=== PATIENT | female | born 1975 | race Caucasian/White ===

== ENCOUNTER 2016-08-18 22:01 | Outpatient (CLI) | payer BC ==
[~2016-08-18] VITALS: Ht 165.1 cm; Wt 104.4 kg
[2016-08-18 22:22] VITALS: BP 154/95
[2016-08-18 22:39] VITALS: BP 140/84
[2016-08-18 22:57] VITALS: BP 156/94
[2016-08-18 23:07] LABS: BASOPHILS % (AUTO) 0 % (0-10); EOSINOPHILS # (AUTO) 0.1 10^3/uL (0.0-0.3); EOSINOPHILS % (AUTO) 1 % (0-10); LYMPHOCYTES # (AUTO) 2.5 X 10^3 (1.0-4.0); LYMPHOCYTES % (AUTO) 22 % (12-44); MEAN CORPUSCULAR HEMOGLOBIN 31 PG (25-34); MEAN CORPUSCULAR HGB CONC 34 G/DL (32-36); MEAN CORPUSCULAR VOLUME 90 FL (80-99); MEAN PLATELET VOLUME 9.6 FL (7.4-10.4); MONOCYTES # (AUTO) 0.8 X 10^3 (0.0-1.0); MONOCYTES % (AUTO) 7 % (0-12); NEUTROPHILS # (AUTO) 7.6 X 10^3 (1.8-7.8); NEUTROPHILS % (AUTO) 69 % (42-75); PLATELET COUNT 201 10^3/uL (130-400); RED BLOOD COUNT 4.07 10^6/uL (4.35-5.85); RED CELL DISTRIBUTION WIDTH 13.8 % (10.0-14.5)
[2016-08-18 23:23] VITALS: BP 149/80
[2016-08-18 23:27] LABS: ALANINE AMINOTRANSFERASE 13 U/L (0-55); ALBUMIN 3.5 GM/DL (3.2-4.5); ANION GAP 9 MMOL/L (5-14); ASPARTATE AMINO TRANSFERASE 16 U/L (5-34); BILIRUBIN,TOTAL 0.4 MG/DL (0.1-1.0); BLOOD UREA NITROGEN 10 MG/DL (7-18); BUN/CREATININE RATIO 16; CALCIUM 9.4 MG/DL (8.5-10.1); CARBON DIOXIDE 21 MMOL/L (21-32); CHLORIDE 107 MMOL/L (98-107); CREATININE SERUM 0.62 MG/DL (0.60-1.30); GFR ESTIMATED > 60; GLUCOSE 85 MG/DL (70-105); POTASSIUM 3.5 MMOL/L (3.6-5.0); SODIUM 137 MMOL/L (135-145); TOTAL PROTEIN 6.8 GM/DL (6.4-8.2)
[2016-08-18] MEDS ORDERED: PREN-142 PO (23:36)
[2016-08-18] MEDS ORDERED: METH500T2 PO (23:36)
[2016-08-18 23:37] VITALS: BP 141/78
--- NOTE | 2016-08-19 17:10 | Physician Query-Final Dx ---
BROCK CRESPO 08/19/16 1710: Clinic Account Progress/Dx Physician Query: Please give diagnosis Date of Service Aug 18, 2016 at 22:01 MAICO LONG MD 08/20/16 0757: Clinic Account Progress/Dx DIAGNOSIS: Diagnosis hypotension / syncope BROCK CRESPO Aug 19, 2016 17:10 MAICO LONG MD Aug 20, 2016 07:57
== END 2016-08-18 23:45 | disposition home or self-care (01) ==
LOC: WSo 22:01 → LDRP 22:01 → WSo 23:45
PROVIDERS: ATTEND Obstetrics & Gynecology
DX: O99.413 Diseases of the circulatory system complicating pregnancy, third trimester (principal); I95.9 Hypotension, unspecified; R55 Syncope and collapse; O09.523 Supervision of elderly multigravida, third trimester; Z3A.30 30 weeks gestation of pregnancy
CPT/HCPCS: 36415; 80053; 82570; 84156; 85025; 99213

== ENCOUNTER → 2016-09-17 | Outpatient (CLI) | payer BC ==
[~2016-09-17] MED LIST: METH500T2 PO; PREN-142 PO
[2016-09-17 10:28] LABS: PROTEIN/CREATININE RATIO 0.12
== END ==
LOC: LABNPT 10:01
PROVIDERS: ATTEND Obstetrics & Gynecology
DX: O14.13 Severe pre-eclampsia, third trimester (principal); Z3A.00 Weeks of gestation of pregnancy not specified
CPT/HCPCS: 82570; 84156

== ENCOUNTER 2016-10-01 09:41 | Outpatient (CLI) | payer BC ==
[~2016-10-01] VITALS: Ht 162.6 cm; Wt 106.1 kg
[~2016-10-01 09:41] MED LIST changes: -NIFE30TA2 PO
[2016-10-01 09:57] VITALS: BP_SYST 153; BP_SYST 171; BP_DIAS 114
[2016-10-01] MEDS ORDERED: NIFE30TA2 PO ×2 (18:35)
== END 2016-10-01 10:10 | disposition home or self-care (01) ==
LOC: PREOP 09:41
PROVIDERS: ATTEND Obstetrics & Gynecology
DX: Z01.818 Encounter for other preprocedural examination (principal); O34.211 Maternal care for low transverse scar from previous cesarean delivery; O99.013 Anemia complicating pregnancy, third trimester; D64.9 Anemia, unspecified
CPT/HCPCS: 87081

== ENCOUNTER 2016-10-01 16:35 | Outpatient (CLI) | payer BC ==
[~2016-10-01] VITALS: Ht 162.6 cm; Wt 105.7 kg
[2016-10-01 16:55] VITALS: BP 155/98
[2016-10-01] MEDS ORDERED: NIFEdipine 10 MG CAPS (WOMEN'S SERVICES ONLY!!!) PO ONE (17:15)
[2016-10-01 17:30] VITALS: BP 145/88
[2016-10-01] MEDS ORDERED: NIFE30TA2 PO (18:35)
--- NOTE | 2016-10-02 13:43 | Physician Query-Final Dx ---
JANINE MENDES 10/02/16 1343: Clinic Account Progress/Dx Physician Query: Please give diagnosis Date of Service Oct 01, 2016 at 16:35 MAICO LONG MD 10/05/16 0748: Clinic Account Progress/Dx DIAGNOSIS: Diagnosis APURVA JANINE MENDES Oct 02, 2016 13:43 MAICO LONG MD Oct 05, 2016 07:48
== END 2016-10-01 19:08 | disposition home or self-care (01) ==
LOC: WSo 16:35 → LDRP 16:35 → WSo 19:08
PROVIDERS: ATTEND Obstetrics & Gynecology
DX: O13.3 Gestational [pregnancy-induced] hypertension without significant proteinuria, third trimester (principal); Z3A.36 36 weeks gestation of pregnancy
CPT/HCPCS: 99213

== ENCOUNTER → 2016-10-01 | Outpatient (CLI) | payer BC ==
[~2016-10-01] MED LIST changes: +NIFE30TA2 PO
== END ==
LOC: LABNPT 09:50
PROVIDERS: ATTEND Obstetrics & Gynecology
DX: O28.9 Unspecified abnormal findings on antenatal screening of mother (principal); Z3A.00 Weeks of gestation of pregnancy not specified
CPT/HCPCS: 82570; 84156

== ENCOUNTER 2016-10-05 11:15 | Inpatient (IN) | payer BC ==
[2016-10-05] VITALS (8 sets, daily range): BP systolic 152–190; BP diastolic 79–111
[~2016-10-05] VITALS: Ht 165.1 cm; Wt 104.8 kg
[~2016-10-05 11:15] MED LIST changes: +NIFE30TA2 PO
[2016-10-05] MEDS ORDERED: LACTATED RINGERS 1,000 ML IV PRN ×2 (12:18)
[2016-10-05 12:25] LABS: BASOPHILS % (AUTO) 0 % (0-10); EOSINOPHILS # (AUTO) 0.1 10^3/uL (0.0-0.3); EOSINOPHILS % (AUTO) 1 % (0-10); LYMPHOCYTES # (AUTO) 2.3 X 10^3 (1.0-4.0); LYMPHOCYTES % (AUTO) 22 % (12-44); MEAN CORPUSCULAR HEMOGLOBIN 31 PG (25-34); MEAN CORPUSCULAR HGB CONC 34 G/DL (32-36); MEAN CORPUSCULAR VOLUME 90 FL (80-99); MEAN PLATELET VOLUME 10.3 FL (7.4-10.4); MONOCYTES # (AUTO) 0.7 X 10^3 (0.0-1.0); MONOCYTES % (AUTO) 7 % (0-12); NEUTROPHILS # (AUTO) 7.3 X 10^3 (1.8-7.8); NEUTROPHILS % (AUTO) 70 % (42-75); PLATELET COUNT 238 10^3/uL (130-400); RED BLOOD COUNT 4.56 10^6/uL (4.35-5.85); RED CELL DISTRIBUTION WIDTH 13.9 % (10.0-14.5); WHITE BLOOD COUNT 10.5 10^3/uL (4.3-11.0)
[2016-10-05] MEDS ORDERED: FAMOTIDINE 20MG/2ML IV (PEPCID) IV ONE (12:30)
[2016-10-05] MEDS ORDERED: CATHETER FLUSH 10 ML SYR IV PRN (12:30)
[2016-10-05] MEDS ORDERED: CITRIC ACID/SOB CIT (BICITRA) 30 ML UDC PO ONE (12:30)
[2016-10-05] MEDS ORDERED: METOCLOPRAMIDE INJ 10 MG/2 ML (REGLAN) IV ONE (12:30)
[2016-10-05] MEDS ORDERED: ceFAZolin INJECTION 2,000 MG in NS (IVPB) 50 ML IV ONE (13:00)
[2016-10-05] MEDS ORDERED: metroNIDAZOLE 500MG/100ML IVPB 100 ML IV ONE (13:00)
[2016-10-05] MEDS ORDERED: D5 LR IV SOLUTION 1,000 ML IV SCH (13:00)
[2016-10-05] MEDS ORDERED: OXYTOCIN/NORMAL SALINE 500 ML IV SCH (13:01)
[2016-10-05] MEDS ORDERED: D5 LR IV SOLUTION 1,000 ML IV ONE (13:09)
--- NOTE | 2016-10-05 13:09 | History & Physical ---
History and Physical Date Seen by Provider: Oct 05, 2016 Time Seen by Provider: 13:05 this patient is a 40-year-old 3 white female with an EDC of October 24, 2016. She was seen in clinic on this date with blood pressure 75/ 118. Blood pressures have been elevated throughout her responding intermittently and somewhat reported [place]. Last Wednesday she was changed to Procardia and had a nice reduction her blood pressure however her blood pressure has rebounded now it is even higher. She complains of headache. She is admitted now for severe preeclampsia for blood pressure control and to expedite delivery. GBS culture was positive at 35 weeks gestation she denies rupture membranes or bleeding Allergies are none medications are vitamins and Procardia 30 mg XL daily Medical history past surgical history obstetric history family history and social histories are per the antepartum record HEENT exam is normal. Patient does appear very uncomfortable. Neck is supple no lymphadenopathy no thyromegaly Abdomen is gravid soft nontender nondistended Extreme show clubbing cyanosis. There is fairly significant pretibial pitting edema. There is no Homans sign. DTRs are 3+ over 4 locally Pelvic exam is deferred Pressure since arrival at labor and delivery has been as high as 190 over 118, but pressures have gradually come down with decreased ambulation at bed rest currently in the 150s over 106 Lab work is pending Assessment and plan 37-2/7 weeks' gestation with previous C-sections 3 and was severe uncontrolled PIH/hypertension plan is for blood pressure control and repeat the today severe PIH at 37 weeks gestation Allergies and Home Medications Allergies Coded Allergies: adhesive tape (Verified Allergy, Unknown, HIVES, 10/01/16) Home Medications Nifedipine 30 Mg Tab.er.24, 10 MG PO DAILY for 7 Days, #7 Prescribed by: GAYATHRI BAUTISTA on 10/01/16 7365 Vit No.124/Iron/FA 1 Each Tablet, 1 EACH PO DAILY, (Reported) MAICO LONG MD Oct 05, 2016 1:09 pm
[2016-10-05] MEDS ORDERED: MEPERIDINE (DEMEROL) INJ 100 MG/ML IM PRN (13:15)
[2016-10-05] MEDS ORDERED: PROMETHAZINE INJ 25 MG/ML (PHENERGAN) AMP IM PRN (13:15)
[2016-10-05] MEDS ORDERED: oxyCODONE/APAP 10/325MG (PERCOCET 10) TABLET PO PRN (13:15)
[2016-10-05] MEDS ORDERED: TETANUS,DIPTH,PERTUSS P/F (BOOSTRIX) 0.5 ML VIAL IM ONE (13:15)
[2016-10-05] MEDS ORDERED: MEASLES,MUMPS,RUBELLA 1 EA INJ SC ONE (13:15)
[2016-10-05 14:11] LABS: ALANINE AMINOTRANSFERASE 13 U/L (0-55); ALBUMIN 3.5 GM/DL (3.2-4.5); ANION GAP 10 MMOL/L (5-14); ASPARTATE AMINO TRANSFERASE 18 U/L (5-34); BILIRUBIN,TOTAL 0.5 MG/DL (0.1-1.0); BLOOD UREA NITROGEN 7 MG/DL (7-18); BUN/CREATININE RATIO 11; CALCIUM 9.6 MG/DL (8.5-10.1); CARBON DIOXIDE 20 MMOL/L (21-32); CHLORIDE 108 MMOL/L (98-107); CREATININE SERUM 0.62 MG/DL (0.60-1.30); GFR ESTIMATED > 60; GLUCOSE 82 MG/DL (70-105); LACTATE DEHYDROGENASE 181 U/L (125-220); POTASSIUM 3.7 MMOL/L (3.6-5.0); SODIUM 138 MMOL/L (135-145); TOTAL PROTEIN 6.7 GM/DL (6.4-8.2)
[2016-10-05] MEDS ORDERED: ceFAZolin 2 GM/50 ML NS 50 ML ONE (14:37)
[2016-10-05] MEDS ORDERED: LACTATED RINGERS 1,000 ML IV ONE (14:46)
[2016-10-05] MEDS ORDERED: OXYTOCIN/NORMAL SALINE 1,000 ML IV ONE (14:46)
[2016-10-05] MEDS ORDERED: morphine PF (DURAMORPH) 10 MG/10 ML AMP ONE (14:47)
[2016-10-05] MEDS ORDERED: fentaNYL INJECTION 100 MCG/2 ML AMP ONE (14:47)
[2016-10-05] MEDS ORDERED: morphine PF (DURAMORPH) 10 MG/10 ML AMP INJ ONE (16:15)
[2016-10-05] MEDS ORDERED: fentaNYL INJECTION 100 MCG/2 ML AMP INJ ONE (16:15)
[2016-10-05] MEDS ORDERED: ONDANSETRON 4 MG/2 ML (SDV) Z0FRAN IV PRN (16:15)
[2016-10-05] MEDS ORDERED: NALOXONE 0.4 MG/ML 1 ML (NARCAN) VIAL IV PRN (16:15)
[2016-10-05] MEDS ORDERED: DOCUSATE SODIUM 100 MG (COLACE) CAP PO SCH (21:00)
[2016-10-05] MEDS: KETOROLAC 30 MG/ML VIAL IVP SCH (21:21)
--- NOTE | 2016-10-05 23:43 | OPERATIVE REPORT ---
DATE OF SERVICE: 10/05/2016 PREOPERATIVE DIAGNOSIS: Term at 37 weeks and 2 days with severe induced hypertension. POSTOPERATIVE DIAGNOSIS: Term at 37 weeks and 2 days with severe induced hypertension. OPERATIVE PROCEDURE: Repeat low transverse delivery of a viable male with Apgars of 9 and 8 at 1 and 5 minutes, respectively. Weight of 6 pounds 7 ounces. Cord blood pH is 7.28 and a time of 1534. OPERATIVE DESCRIPTION: With the patient in the supine position under satisfactory spinal anesthesia, she was prepped and draped in the usual fashion for abdominal surgery. Frye catheter was placed in the urinary bladder. A repeat Pfannenstiel incision was made through the skin with a scalpel and the patient's abdomen entered in the usual manner. Bladder retractor placed into position. Clean scalpel used to make a 4 cm hysterotomy incision transversely across the lower uterine segment. The amniotic fluid was released on hysterotomy, was copious and clear. Boone forceps were applied to facilitate delivery of a vigorous viable male with Apgars of 9 and 8 at 1 and 5 minutes, respectively, weight of 6 pounds 7 ounces, time of 1534 and a cord arterial pH of 7.28. The had a nuchal cord that was easily released. The infant was bulb suctioned on delivery of the head and again on completion of delivery the cord was doubly clamped and cut and the infant passed to Karon Albert, the pediatric nurse in attendance for delivery. Cord bloods were obtained. The placenta delivered spontaneously Schule. It was normal with a 3-vessel cord. The uterus was exteriorized until wiped clean with a wet laparotomy sponge. Uterine incision closed with a running locked suture of 2-0 Vicryl. Hemostasis was complete. The uterus was quite large and bulky. There was a large posterior lower uterine segment fibroid. There was a large fibroid occupying the left side of the uterus. The uterus was returned to the abdominal cavity. All blood clot and debris removed from the abdominal cavity. Sponge and needle counts correct and hemostasis assured, the anterior parietal peritoneum was closed with running suture of 2-0 Vicryl. Rectus muscles were closed with that suture as well. The rectus fascia was closed with 2-0 Vicryl, subcutaneous tissues were closed with 2-0 Vicryl and the skin with pascual. Sponge and needle counts were correct on completion of the procedure. Estimated blood loss was around 500 mL. The patient tolerated the procedure well, was transferred to the recovery room in stable condition. Blood pressures had dropped nicely after placement of the spinal. The patient will be watched closely for blood pressures. Job ID: [id number] DocumentID: [id number] Dictated Date: 10/05/2016 16:00:10 Seam Presser Date: 10/05/2016 23:43:22 Dictated By: MAICO LONG MD
[2016-10-06] VITALS: BP 159/100
[2016-10-06] MEDS: KETOROLAC 30 MG/ML VIAL IVP SCH (03:59)
[2016-10-06 04:30] VITALS: BP 154/101
--- NOTE | 2016-10-06 07:37 | Progress Note-Standard ---
Standard Progress Note Progress Notes/Assess & Plan Date Seen by Provider: Oct 06, 2016 Time Seen by Provider: 07:35 Progress/Assessment & Plan this patient is without complaint. Her baby was shipped to [facility] secondary to increased oxygen requirement. Requesting discharge. She is ambulating, voiding, tolerating by mouth well, has good pain control. Her blood pressures remained elevated and somewhat labile. Eyes chest pain, denies shortness of breath, denies nausea vomiting, and denies headache. Vital Signs Date Time Temp Pulse Resp B/P (MAP) Pulse Ox O2 Delivery O2 Flow Rate FiO2 10/06/16 04:30 154/101 10/06/16 04:00 98.6 88 16 100 Room Air 10/06/16 00:00 98.5 90 16 159/100 97 Room Air 10/05/16 22:18 159/109 10/05/16 20:00 98.4 105 19 188/111 99 Room Air 10/05/16 17:25 98.3 82 18 158/100 99 Room Air 10/05/16 14:35 89 18 155/91 10/05/16 13:30 88 18 159/95 10/05/16 12:20 88 152/79 10/05/16 11:40 88 18 168/104 Room Air 10/05/16 11:35 98.7 83 18 190/108 Room Air I & O 10/06/16 07:00 Intake Total 1650 ml Output Total 1850 ml Balance -200 ml Blood pressures are generally in 160 and is afebrile Abdomen is benign. The incision is clean dry and intact. Extremities show clubbing cyanosis. There is no Homans sign. There is some fairly notable pretibial pitting edema that is not new for this patient Assessment and plan postoperative day number 1 status post repeat secondary to severe PIH. Patient will be discharged home with follow-up in clinic. We'll continue her procardia in the short-term for her blood pressure. Final Diagnosis severe PIH/repeat at 37-2/7 weeks' gestation MAICO LONG MD Oct 06, 2016 7:37 am
[2016-10-06] MEDS ORDERED: IBUP-1780 PO (07:39)
[2016-10-06] MEDS ORDERED: DOCU100C37 PO (07:39)
[2016-10-06] MEDS ORDERED: OXYC-465 PO (07:39)
[2016-10-06] MEDS ORDERED: NIFE30TA2 PO (07:39)
--- NOTE | 2016-10-06 07:41 | Discharge Instructions ---
Discharge Instructions Discharge Medications New, Converted or Re-Newed RX: RX on Chart Patient Instructions Patient Instructions: as directed Return to The Hospital For: as directed Activity & Diet Discharge Diet: No Restrictions Activity as Tolerated: No Orders-Post D/C & Referrals Follow Up Appt: RTC tomorrow or the next day at 930 a.m. for incision check and staple removal. Call to make follow up appt. for patient in 4 weeks. Activity Per routine post instructions. Please call in RX to patient pharmacy. Diet as tolerated Patient may shower or tub bathe as desired. Continue home meds MAICO LONG MD Oct 06, 2016 7:41 am
[2016-10-06 08:00] VITALS: BP 153/98
[2016-10-06] MEDS ORDERED: TETANUS,DIPTH,PERTUSS P/F (BOOSTRIX) 0.5 ML VIAL IM ONE (08:09)
[2016-10-06] MEDS ORDERED: IBUPROFEN 800 MG (MOTRIN) TAB PO SCH (13:15)
== END 2016-10-06 09:05 | disposition home or self-care (01) | DRG 766 ==
LOC: LDRP 11:15
PROVIDERS: ADMIT Obstetrics & Gynecology; ATTEND Obstetrics & Gynecology
PROC: 10D00Z1 Extraction of Products of Conception, Low, Open Approach (ICD-10-PCS; principal; 2016-10-05 15:07)
DX: O14.14 Severe pre-eclampsia complicating childbirth (principal); O34.211 Maternal care for low transverse scar from previous cesarean delivery; O99.824 Streptococcus B carrier state complicating childbirth; O34.13 Maternal care for benign tumor of corpus uteri, third trimester; O69.81X0 Labor and delivery complicated by cord around neck, without compression, not applicable or unspecified; Z37.0 Single live birth; Z3A.37 37 weeks gestation of pregnancy
CPT/HCPCS: 36415; 80053; 82570; 83615; 84156; 85025; 86850; 86900; 86901; 94664

== ENCOUNTER → 2020-05-15 | Outpatient (CLI) | payer BC ==
[~2020-05-15] MED LIST changes: +DOCU100C37 PO; +IBUP-1780 PO; -METH500T2 PO; +METH500T23 PO; +OXYC-556 PO
== END ==
LOC: LABNPT 09:45
PROVIDERS: ATTEND Obstetrics & Gynecology
DX: O14.93 Unspecified pre-eclampsia, third trimester (principal); Z3A.00 Weeks of gestation of pregnancy not specified
CPT/HCPCS: 82570; 84156

== ENCOUNTER 2020-05-20 13:53 | Outpatient (CLI) | payer BC ==
[~2020-05-20] VITALS: Ht 167.7 cm; Wt 108.0 kg
[2020-05-20] VITALS (7 sets, daily range): BP systolic 160–189; BP diastolic 91–112
[2020-05-20] MEDS ORDERED: D5 LR IV SOLUTION 1,000 ML IV SCH (14:45)
[2020-05-20 15:05] LABS: BASOPHILS % (AUTO) 0 % (0-10); EOSINOPHILS # (AUTO) 0.1 10^3/uL (0.0-0.3); EOSINOPHILS % (AUTO) 1 % (0-10); HEMATOCRIT 42 % (35-52); HEMOGLOBIN 14.1 g/dL (11.5-16.0); LYMPHOCYTES # (AUTO) 2.3 X 10^3 (1.0-4.0); LYMPHOCYTES % (AUTO) 20 % (12-44); MEAN CORPUSCULAR HEMOGLOBIN 30 pg (25-34); MEAN CORPUSCULAR HGB CONC 34 g/dL (32-36); MEAN CORPUSCULAR VOLUME 89 fL (80-99); MEAN PLATELET VOLUME 9.5 fL (9.0-12.2); MONOCYTES # (AUTO) 0.7 X 10^3 (0.0-1.0); MONOCYTES % (AUTO) 6 % (0-12); NEUTROPHILS # (AUTO) 8.4 X 10^3 (1.8-7.8); NEUTROPHILS % (AUTO) 72 % (42-75); PLATELET COUNT 275 10^3/uL (130-400); WHITE BLOOD COUNT 11.7 10^3/uL (4.3-11.0)
[2020-05-20 15:08] LABS: BILIRUBIN,URINE NEGATIVE (NEGATIVE); CLARITY,URINE CLEAR; COLOR,URINE YELLOW; GLUCOSE, URINE (UA) NEGATIVE (NEGATIVE); KETONES,URINE NEGATIVE (NEGATIVE); LEUKOCYTE ESTERASE ,URINE NEGATIVE (NEGATIVE); NITRITE,URINE NEGATIVE (NEGATIVE); PH,URINE 5.5 (5-9); PROTEIN,URINE TRACE (NEGATIVE)
[2020-05-20] MEDS ORDERED: NIFE30TA2 PO (15:13)
[2020-05-20 15:15] LABS: BACTERIA,URINE FEW /HPF; WBC,URINE 0-2 /HPF
[2020-05-20 15:16] LABS: ALANINE AMINOTRANSFERASE 13 U/L (0-55); ALBUMIN 3.6 GM/DL (3.2-4.5); ALKALINE PHOSPHATASE 97 U/L (40-136); BILIRUBIN,TOTAL 0.3 MG/DL (0.1-1.0); BUN/CREATININE RATIO 12; CALCIUM 9.2 MG/DL (8.5-10.1); CARBON DIOXIDE 20 MMOL/L (21-32); CHLORIDE 106 MMOL/L (98-107); CREATININE SERUM 0.58 MG/DL (0.60-1.30); GFR ESTIMATED > 60; GLUCOSE 78 MG/DL (70-105); POTASSIUM 3.8 MMOL/L (3.6-5.0); SODIUM 137 MMOL/L (135-145); TOTAL PROTEIN 7.3 GM/DL (6.4-8.2); URIC ACID 4.5 MG/DL (2.6-7.2)
[2020-05-20] MEDS ORDERED: LABETALOL 200 MG (NORMODYNE) TAB PO NR (16:00)
--- NOTE | 2020-05-21 08:07 | Physician Query-Final Dx ---
Clinic Account Progress/Dx Physician Query: Please give diagnosis Please include # weeks gestation Date of Service May 20, 2020 at 13:53 KATHY LUNDBERG May 21, 2020 08:06
== END 2020-05-20 16:08 | disposition home or self-care (01) ==
LOC: LDRP 13:53 → WSo 13:53
PROVIDERS: ATTEND Obstetrics & Gynecology
DX: O13.3 Gestational [pregnancy-induced] hypertension without significant proteinuria, third trimester (principal); Z3A.34 34 weeks gestation of pregnancy
CPT/HCPCS: 36415; 80053; 81000; 82570; 83615; 84156; 84550; 85025; 87088; 99213

== ENCOUNTER → 2020-05-21 | Outpatient (CLI) | payer BC | LOC: LABNPT 10:58 | PROVIDERS: ATTEND Obstetrics & Gynecology | DX: O14.93 Unspecified pre-eclampsia, third trimester (principal); Z3A.00 Weeks of gestation of pregnancy not specified | CPT/HCPCS: 82570; 84156 ==

== ENCOUNTER → 2020-05-27 | Outpatient (CLI) | payer BC | LOC: LABNPT 09:12 | PROVIDERS: ATTEND Obstetrics & Gynecology | DX: O14.93 Unspecified pre-eclampsia, third trimester (principal); Z3A.00 Weeks of gestation of pregnancy not specified | CPT/HCPCS: 82570; 84156 ==

== ENCOUNTER → 2020-06-04 | Outpatient (CLI) | payer BC ==
[~2020-06-04] MED LIST changes: +DOCU-143 PO; +LABE200T7 PO; +OXYC1TAB12 PO
== END ==
LOC: LABNPT 10:16
PROVIDERS: ATTEND Obstetrics & Gynecology
DX: O14.93 Unspecified pre-eclampsia, third trimester (principal); Z3A.00 Weeks of gestation of pregnancy not specified
CPT/HCPCS: 82570; 84156

== ENCOUNTER 2020-06-06 05:38 | Outpatient (CLI) | payer BC ==
[~2020-06-06] VITALS: Ht 172.7 cm; Wt 113.6 kg
[~2020-06-06 05:38] MED LIST changes: -DOCU-143 PO; -LABE200T7 PO; -OXYC1TAB12 PO
[2020-06-06] MEDS ORDERED: LABE200T7 PO ×2 (12:41)
[2020-06-07] MEDS ORDERED: IBUP-1780 PO ×2 (13:44)
[2020-06-07] MEDS ORDERED: DOCU-143 PO ×2 (13:44)
[2020-06-07] MEDS ORDERED: OXYC1TAB12 PO ×2 (13:44)
== END 2020-06-06 12:48 | disposition home or self-care (01) ==
LOC: PREOP 05:38 → EDSTATUS 12:00 → PREOP 12:48
PROVIDERS: ATTEND Obstetrics & Gynecology
DX: Z01.818 Encounter for other preprocedural examination (principal)

== ENCOUNTER 2020-06-07 12:28 | Inpatient (IN) | payer BC ==
[2020-06-07] VITALS (15 sets, daily range): BP systolic 147–230; BP diastolic 74–140
[~2020-06-07] VITALS: Ht 170 cm; Wt 113.0 kg
[~2020-06-07 12:28] MED LIST changes: +LABE200T7 PO
[2020-06-07] MEDS ORDERED: D5 LR IV SOLUTION 1,000 ML IV ONE (12:41)
[2020-06-07] MEDS ORDERED: D5 LR IV SOLUTION 1,000 ML IV SCH ×2 (13:00→13:45)
[2020-06-07] MEDS ORDERED: ceFAZolin INJECTION 2,000 MG in WATER (STERILE) FOR INJECTION 10 ML IV ONE (13:00)
[2020-06-07] MEDS ORDERED: metroNIDAZOLE 500MG/100ML IVPB 100 ML IV ONE (13:00)
[2020-06-07] MEDS ORDERED: METOCLOPRAMIDE INJ 10 MG/2 ML (REGLAN) ONE (13:11)
[2020-06-07] MEDS ORDERED: hydrALAZINE (APESOLINE) 20 MG/ML VIAL ONE (13:11)
[2020-06-07] MEDS ORDERED: CITRIC ACID/SOB CIT (BICITRA) 30 ML UDC ONE (13:12)
[2020-06-07] MEDS ORDERED: FAMOTIDINE 20MG/2ML IV (PEPCID) ONE (13:12)
[2020-06-07] MEDS ORDERED: hydrALAZINE (APESOLINE) 20 MG/ML VIAL IV ONE ×2 (13:15→19:00)
[2020-06-07] MEDS ORDERED: ceFAZolin 2 GM IV Premixed 50 ML ONE (13:16)
[2020-06-07 13:21] LABS: BASOPHILS % (AUTO) 0 % (0-10); EOSINOPHILS # (AUTO) 0.1 10^3/uL (0.0-0.3); EOSINOPHILS % (AUTO) 1 % (0-10); HEMATOCRIT 39 % (35-52); HEMOGLOBIN 13.1 g/dL (11.5-16.0); LYMPHOCYTES # (AUTO) 2.1 10^3/uL (1.0-4.0); LYMPHOCYTES % (AUTO) 20 % (12-44); MEAN CORPUSCULAR HEMOGLOBIN 31 pg (25-34); MEAN CORPUSCULAR HGB CONC 34 g/dL (32-36); MEAN CORPUSCULAR VOLUME 92 fL (80-99); MEAN PLATELET VOLUME 9.9 fL (9.0-12.2); MONOCYTES # (AUTO) 0.6 10^3/uL (0.0-1.0); MONOCYTES % (AUTO) 6 % (0-12); NEUTROPHILS # (AUTO) 7.5 10^3/uL (1.8-7.8); NEUTROPHILS % (AUTO) 71 % (42-75); PLATELET COUNT 232 10^3/uL (130-400); WHITE BLOOD COUNT 10.6 10^3/uL (4.3-11.0)
[2020-06-07] MEDS ORDERED: fentaNYL INJ 100 MCG/2 ML AMP ONE (13:29)
[2020-06-07] MEDS ORDERED: OXYTOCIN PRE-MIX DRIP 1,000 ML IV ONE (13:31)
[2020-06-07 13:39] LABS: ALANINE AMINOTRANSFERASE 27 U/L (0-55); ALBUMIN 3.5 GM/DL (3.2-4.5); ALKALINE PHOSPHATASE 96 U/L (40-136); BILIRUBIN,TOTAL 0.3 MG/DL (0.1-1.0); BUN/CREATININE RATIO 18; CARBON DIOXIDE 18 MMOL/L (21-32); CHLORIDE 107 MMOL/L (98-107); CREATININE SERUM 0.62 MG/DL (0.60-1.30); GFR ESTIMATED > 60; GLUCOSE 89 MG/DL (70-105); SODIUM 137 MMOL/L (135-145); TOTAL PROTEIN 6.6 GM/DL (6.4-8.2); URIC ACID 6.1 MG/DL (2.6-7.2)
--- NOTE | 2020-06-07 13:40 | History & Physical ---
History and Physical Date Seen by Provider: Jun 07, 2020 Time Seen by Provider: 13:35 This patient is a 44-year-old 5 para 4 4 white female with a long history of pre-existing hypertension. Her blood pressure has been adequately controlled initially on nifedipine but eventually that became no longer effective and she was changed to labetalol with initially reasonable effect but of late her blood pressures have been continuing to elevate in spite of increasing doses of labetalol. She presents now with blood pressures over 220/100 and teens. She has had lab work performed number of times that have ruled out preeclampsia being superimposed on her hypertension. But at this point she has uncontrolled pre-existing hypertension and has been admitted with plan to proceed with repeat . She is currently 36-4/7 weeks gestation. Patient denies rupture membranes or bleeding. She does complain of a severe right-sided headache. She has had a GBS culture that was negative. Patient is also diabetic type A1 with adequate blood sugar control with her diet Allergies are to adhesive tape Medications are vitamins and labetalol recently elevated to 400 mg twice a day Medical social and surgical history is all per the antepartum record HEENT exam is normal Neck is supple no lymphadenopathy no thyromegaly Abdomen is gravid soft nontender nondistended Extremities show no clubbing or cyanosis. There is no Homans' sign. Pelvic exam is deferred Lab work is as follows Laboratory Tests Test 06/07/20 12:45 06/07/20 13:16 06/07/20 13:17 Range/Units White Blood Count 10.6 4.3-11.0 10^3/uL Red Blood Count 4.25 3.80-5.11 10^6/uL Hemoglobin 13.1 11.5-16.0 g/dL Hematocrit 39 35-52 % Mean Corpuscular Volume 92 80-99 fL Mean Corpuscular Hemoglobin 31 25-34 pg Mean Corpuscular Hemoglobin Concent 34 32-36 g/dL Red Cell Distribution Width 14.3 10.0-14.5 % Platelet Count 232 130-400 10^3/uL Mean Platelet Volume 9.9 9.0-12.2 fL Immature Granulocyte % (Auto) 2 % Neutrophils (%) (Auto) 71 42-75 % Lymphocytes (%) (Auto) 20 12-44 % Monocytes (%) (Auto) 6 0-12 % Eosinophils (%) (Auto) 1 0-10 % Basophils (%) (Auto) 0 0-10 % Neutrophils # (Auto) 7.5 1.8-7.8 10^3/uL Lymphocytes # (Auto) 2.1 1.0-4.0 10^3/uL Monocytes # (Auto) 0.6 0.0-1.0 10^3/uL Eosinophils # (Auto) 0.1 0.0-0.3 10^3/uL Basophils # (Auto) 0.0 0.0-0.1 10^3/uL Immature Granulocyte # (Auto) 0.2 H 0.0-0.1 10^3/uL Assessment and plan 36-4/7 weeks gestation with severe uncontrolled pre- existing hypertension. It does not appear that the patient is overtly preeclam ptic but lab work is pending. Patient has had 4 previous C-sections and we are planning now to proceed with . She has been given a dose of Apresoline and effort to decrease her blood pressure some in preparation for the . Anesthesia has been consulted as is the surgery crew. is pending Severe pre-existing hypertension at this point uncontrolled now at 36-4/7 weeks gestation with 4 previous and with gestational diabetes Allergies and Home Medications Allergies Coded Allergies: adhesive tape (Verified Allergy, Unknown, HIVES, 10/01/16) Home Medications Labetalol HCl 200 Mg Tablet, 400 MG PO BID, (Reported) Vit No.124/Iron/FA 1 Each Tablet, 1 EACH PO DAILY, (Reported) Patient Home Medication List Home Medication List Reviewed: Yes MAICO LONG MD Jun 07, 2020 13:40
[2020-06-07] MEDS ORDERED: OXYC1TAB12 PO ×2 (13:44)
[2020-06-07] MEDS ORDERED: IBUP-1780 PO ×2 (13:44)
[2020-06-07] MEDS ORDERED: DOCU-143 PO ×2 (13:44)
--- NOTE | 2020-06-07 13:44 | Discharge Inst-Surgical ---
Discharge Inst-Surgical Depart Medication/Instructions New, Converted or Re-Newed RX: RX on Chart Consults/Follow Up Patient Instructions: As directed Orders & Referrals Follow Up Appt: RTC 1 week for incision check. Call to make follow up appt. for patient in 4 weeks. Wound Care: Remove pascual, apply benzoin and steri strips. Activity Per routine post instructions. Please call in RX to patient pharmacy. Diet as tolerated Patient may shower or tub bathe as desired. Continue home meds Activity Activity as Tolerated: No Diet Discharge Diet: No Restrictions MAICO LONG MD Jun 07, 2020 13:44
[2020-06-07] MEDS ORDERED: METOCLOPRAMIDE INJ 10 MG/2 ML (REGLAN) IV ONE (13:45)
[2020-06-07] MEDS ORDERED: MEASLES,MUMPS,RUBELLA 1 EA INJ SC ONE (13:45)
[2020-06-07] MEDS ORDERED: TETANUS,DIPTH,PERTUSS P/F (BOOSTRIX) 0.5 ML VIAL IM ONE (13:45)
[2020-06-07] MEDS ORDERED: OXYTOCIN PRE-MIX DRIP 500 ML IV SCH (13:45)
[2020-06-07] MEDS ORDERED: fentaNYL INJ 100 MCG/2 ML AMP IVP PRN (13:45)
[2020-06-07] MEDS ORDERED: oxyCODONE/APAP 10/325MG (PERCOCET 10) TABLET PO PRN (13:45)
[2020-06-07] MEDS ORDERED: ONDANSETRON 4 MG/2 ML (SDV) Z0FRAN IVP PRN (13:45)
[2020-06-07] MEDS ORDERED: CATHETER FLUSH 10 ML SYR IV PRN (13:45)
[2020-06-07] MEDS ORDERED: LACTATED RINGERS 1,000 ML IV PRN (13:45)
[2020-06-07] MEDS ORDERED: FAMOTIDINE 20MG/2ML IV (PEPCID) IV ONE (13:45)
[2020-06-07] MEDS ORDERED: CITRIC ACID/SOB CIT (BICITRA) 30 ML UDC PO ONE (13:45)
[2020-06-07] MEDS ORDERED: KETOROLAC 30 MG/ML VIAL ONE (14:22)
[2020-06-07] MEDS ORDERED: ONDANSETRON 4 MG/2 ML (SDV) Z0FRAN ONE (14:22)
[2020-06-07] MEDS ORDERED: hydrALAZINE (APESOLINE) 20 MG/ML VIAL IV NR (21:00)
[2020-06-07] MEDS ORDERED: DOCUSATE SODIUM 100 MG (COLACE) CAP PO SCH (21:00)
[2020-06-07] MEDS: DOCUSATE SODIUM 100 MG (COLACE) CAP PO SCH (21:04)
[2020-06-07] MEDS: KETOROLAC 30 MG/ML VIAL IVP SCH (21:04)
[2020-06-08] VITALS (8 sets, daily range): BP systolic 135–190; BP diastolic 74–101
--- NOTE | 2020-06-08 00:37 | OPERATIVE REPORT ---
DATE OF SERVICE: 06/07/2020 PREOPERATIVE DIAGNOSES: A 36 and 4/7 weeks' gestation with severe preexisting hypertension/PIH as well as gestational diabetes and breech presentation and previous C-sections x4. POSTOPERATIVE DIAGNOSES: A 36 and 4/7 weeks' gestation with severe preexisting hypertension/PIH as well as gestational diabetes and breech presentation and previous C-sections x4. OPERATIVE PROCEDURE: Repeat low transverse delivery of a viable male infant with Apgars Of 8 and 9 at 1 and 5 minutes respectivel and with weight of 5 pounds 9 ounces. Cord blood gas pH of 7.32 and a time of 1410. OPERATIVE DESCRIPTION: With the patient in the supine position under satisfactory spinal analgesia, the patient was prepped and draped in the usual fashion for abdominal surgery. Frye catheter was placed in the urinary bladder. A repeat Pfannenstiel incision was made through skin with scalpel, the patient's abdomen entered in the usual manner. Bladder retractor was placed in position. Clean scalpel used to make a 4 cm hysterotomy incision transversely across the lower uterine segment that was extended by blunt dissection as well. Clear amniotic fluid was released on hysterotomy. The presentation was breech. Both feet were grasped and after rupture of membranes, the feet were extracted through the incision and breech extraction was accomplished in the usual manner without difficulty. The infant was bulb suctioned on delivery. The infant had stats and Apgars as noted above. The umbilical cord was doubly clamped and cut, and passed to Dr. Gonzalez, the printing and stamping supervisor in attendance for delivery. Cord bloods were obtained. The placenta delivered spontaneously Vo. It was normal with a 3-vessel cord. The uterus was exteriorized, and interior was wiped clean with a wet laparotomy sponge. Uterine incision was then closed with a running locked suture of 2-0 Vicryl. Hemostasis was complete. The patient had a very large posterior lower uterine segment/cervical fibroid. This was approximately 10 cm in diameter. There was a similar lesion in the left upper cornu of the uterus. There were numerous other small fibroids throughout the wall of the uterus. The uterus was returned to the abdominal cavity. All blood clot and debris was removed from the abdominal cavity. Sponge and needle counts correct, hemostasis assured. The anterior parietal peritoneum was closed with running suture of 2-0 Vicryl. Rectus muscles were closed with that suture as well. The rectus fascia was closed with 2-0 Vicryl, subcutaneous tissue was closed with 2-0 Vicryl and the skin was stapled. Sponge and needle counts were complete on completion of the procedure. Blood loss was around 400 mL. The patient tolerated the procedure well and was transferred to the recovery room in stable condition. The had been taken stable to the full term nursery under the care of Dr. Gonzalez. Job ID: [id number] DocumentID: [id number] Dictated Date: 06/07/2020 16:38:11 Broadcast Meteorologist Date: 06/08/2020 00:36:34 Dictated By: MAICO LONG MD MTDD
[2020-06-08] MEDS: KETOROLAC 30 MG/ML VIAL IVP SCH ×2 (02:34→08:16)
[2020-06-08] MEDS: DOCUSATE SODIUM 100 MG (COLACE) CAP PO SCH (08:16)
[2020-06-08] MEDS ORDERED: LABETALOL 200 MG (NORMODYNE) TAB PO ONE ×2 (09:04→09:15)
--- NOTE | 2020-06-08 09:17 | Progress Note ---
Standard Progress Note Progress Notes/Assess & Plan Date Seen by a Provider: Jun 08, 2020 Time Seen by a Provider: 09:15 Progress/Assessment & Plan This patient is without complaint. She is ambulating, voiding, tolerating oral intake well and has good pain control. Patient is requesting discharge home. Vital Signs Date Time Temp Pulse Resp B/P (MAP) Pulse Ox O2 Delivery O2 Flow Rate FiO2 06/08/20 06:30 139/78 (98) 06/08/20 04:02 154/74 (100) 06/08/20 02:30 36.8 105 16 157/82 (107) 96 Room Air 06/07/20 22:20 36.8 109 18 147/74 (98) 97 Room Air 06/07/20 21:10 184/91 (122) 06/07/20 20:00 182/95 (124) 06/07/20 19:35 36.9 103 18 200/110 (140) 96 Room Air 06/07/20 18:53 89 20 210/110 (143) 99 Room Air 06/07/20 17:48 Room Air 06/07/20 15:29 37.0 20 150/85 (106) 98 Room Air 06/07/20 15:29 Room Air 06/07/20 15:15 Room Air 06/07/20 15:15 36.4 20 148/89 (108) 99 Room Air 06/07/20 15:00 36.4 20 158/103 (121) 97 Room Air 06/07/20 15:00 Room Air 06/07/20 14:45 36.1 20 154/95 (114) 95 Room Air 06/07/20 14:45 Room Air 06/07/20 13:40 97 20 214/135 (161) 97 Room Air 06/07/20 13:20 37.1 88 20 208/119 (148) 97 Room Air 06/07/20 13:10 81 20 205/115 (145) 97 Room Air 06/07/20 12:58 87 20 214/120 (151) 97 Room Air 06/07/20 12:55 36.8 87 20 230/140 (170) 97 Room Air 06/07/20 12:30 37.0 87 20 97 Room Air 06/07/20 12:30 Room Air I & O 06/08/20 07:00 Intake Total 2310 ml Output Total 1400 ml Balance 910 ml Vital signs are stable. Patient is afebrile. The abdomen is benign. The surgical incision is clean dry and intact. The fundus is firm below the umbilicus and nontender. Extremities show no clubbing cyanosis. There is no Homans' sign. Assessment and plan post operative day #1 doing well. Blood pressures remain elevated. She has been given a Apresoline to lower the blood pressure. Cardiology was consulted in the evening and had been directing the administration of the Apresoline. Will resume her labetalol at 600 mg twice a day. And we will arrange follow-up with cardiology outpatient Patient is requesting discharge home as her baby was transferred to [facility]. We will allow discharge home with follow-up in clinic. Final Diagnosis 36-4/7 weeks gestation with severe PIH/gestational diabetes and previous C- sections x4 admitted for repeat MAICO LONG MD Jun 08, 2020 09:17
--- NOTE | 2020-06-08 12:55 | Consultation-Cardiology ---
HPI-Cardiology Cardiology Consultation: Date of Consultation 06/08/20 Date of Admission Attending Physician Maico Evans MD Admitting Physician Maico Evans MD Consulting Physician Lynn GOMEZ MD HPI: Time Seen by a Provider: 11:50 Chief Complaint: Hypertension This is a 44-year-old lady who has pre-existing hypertension but no history of preeclampsia. Patient had a done for significantly elevated blood pressure. The baby was transferred to NICU at [facility] [place]. The patient did complain of headaches. Blood pressure when I was called yesterday was systolic 220 mmHg. Patient denies any other cardiac complaints. Review of Systems-Cardiology Review of Systems Constitutional: As described under HPI; No As described under HPI, No no symptoms reported, No chills, No fever, No lightheadedness Eyes: No As described under HPI, No no symptoms reported, No blindness, No blurred vision, No contact lenses, No drainage, No decreased acuity, No foreign body sensation, No pain, No vision change Ears/Nose/Throat: No As described under HPI, No no symptoms reported, No chronic hearing loss, No ear discharge, No ear pain, No nasal drainage, No ulcerations Respiratory: No no symptoms reported; As described under HPI; No As described under HPI, No cough, No orthopnea, No shortness of breath, No SOB with excertion Cardiovascular: No no symptoms reported; As described under HPI; No As described under HPI, No chest pain, No edema, No irregular heart rate, No lightheadedness, No palpitations Gastrointestinal: No no symptoms reported, No As described under HPI, No abdomen distended, No abdominal pain, No blood streaked bowels, No constipation, No diarrhea, No nausea, No vomiting, No stool coloration changes Genitourinary: No As described under HPI, No burning, No dysuria, No discharge, No frequency, No flank pain, No hematuria, No urgency : Yes : No Expected Date of Delivery: June 30, 2020 Skin: No rash, No skin related problems, No ulcerations Psychiatric/Neurological: headache; No anxiety, No depression, No seizure, No focal weakness, No syncope Hematologic: No bleeding abnormalities IAT-Zekycq-Pbjyis Hx Patient Social History Smoking Status: Never a Smoker 2nd Hand Smoke Exposure: No Have you traveled recently?: No Alcohol Use?: No Pt feels they are or have been: No Immunizations Up To Date Date of Influenza Vaccine: Jan 22, 2020 Past Medical History PMH As described under Assessment. Family Medical History Family History: Cardiovascular disease 19 FATHER Hypertension 19 MOTHER Myocardial infarction 19 FATHER Allergies and Home Medications Allergies Coded Allergies: adhesive tape (Verified Allergy, Unknown, HIVES, 10/01/16) Home Medications Docusate Sodium 100 Mg Capsule, 100 MG PO BID Prescribed by: MAICO NORIEGA on 06/07/20 1344 Ibuprofen 800 Mg Tablet, 800 MG PO Q6H PRN for PAIN Prescribed by: MAICO NORIEGA on 06/07/20 1344 Labetalol HCl 200 Mg Tablet, 400 MG PO BID, (Reported) Oxycodone HCl/Acetaminophen 1 Each Tablet, 1 TAB PO Q8H PRN for PAIN-MODERATE Prescribed by: MAICO NORIEGA on 06/07/20 1344 Vit No.124/Iron/FA 1 Each Tablet, 1 EACH PO DAILY, (Reported) Patient Home Medication List Home Medication List Reviewed: Yes Physical Exam-Cardiology Physical Exam Vital Signs/I&O 06/08/20 06/08/20 06/08/20 06/08/20 04:02 06:30 08:00 08:05 Temp 36.8 Pulse 100 Resp 18 B/P (MAP) 154/74 (100) 139/78 (98) 190/101 (130) 167/82 (110) Pulse Ox 96 O2 Delivery Room Air 06/08/20 06/08/20 06/08/20 10:40 12:00 13:20 Temp 36.7 36.7 Pulse 92 87 87 Resp 18 18 18 B/P (MAP) 135/77 (96) 145/86 (105) 145/86 Pulse Ox 97 97 O2 Delivery Room Air Room Air Room Air 06/08/20 00:00 Intake Total 1110 ml Output Total 200 ml Balance 910 ml Capillary Refill : Less Than 3 SecondsLess Than 3 Seconds Constitutional: appears stated age; No apparent distress; well-developed, well- nourished HEENT: PERRL; No discharge; hearing is well preserved, oral hygience is good; No ulceration, No xanthelasmas are seen Neck: No carotid bruit; carotid pulses are 2 + bilaterally Respiratory: chest is bilaterally symmetric, lungs clear to auscultation Cardiovascular: regular rate-rhythm, S1 and S2 Gastrointestinal: soft, audible bowel sounds; No spleenomegaly Rectal: deferred Extremities: No clubbing, No cyanosis; no lower extremity edema bilateral; No significant edema Neurologic/Psychiatric: no motor/sensory deficits, alert, normal mood/affect, oriented x 3, power is 5/5 both on sides Skin: normal color; No rash, No ulcerations Data Review Labs A/P-Cardiology Assessment/Admission Diagnosis S/p , Severe hypertension Plan Severe hypertensionresponded to IV hydralazine yesterday. We gave 2 dosages of 10 mg each. We gradually got her systolic blood pressure down from 220 mmHg to below 160 mmHg. Labetalol dose increased to 600 mg twice a day. She was given a dose this morning. Consistently her blood pressure systolic has been below 150 mmHg. I discussed at length with the patient and recommended that she follows up with Dr. Hayden or Dr. Khan next week for further management of blood pressure. Currently blood pressure is stable and the patient can be discharged. Thank you for your consultation. Please call me if you have any questions. Johnnie Gomez MD, FACP, FACC, FSCAI, FHRS, CCDS Interventional Cardiology Cardiac Electrophysiology Vascular Medicine and Endovascular Interventions Lynn GOMEZ MD Jun 08, 2020 12:55
[2020-06-08] MEDS ORDERED: IBUPROFEN 800 MG (MOTRIN) TAB PO SCH (13:45)
== END 2020-06-08 13:20 | disposition home or self-care (01) | DRG 786 ==
LOC: WSo 12:28 → LDRP 12:29 → WSo 12:58 → LDRP 13:11
PROVIDERS: ADMIT Obstetrics & Gynecology; ATTEND Obstetrics & Gynecology
PROC: 10D00Z1 Extraction of Products of Conception, Low, Open Approach (ICD-10-PCS; principal; 2020-06-07 13:43)
DX: O10.02 Pre-existing essential hypertension complicating childbirth (principal); O60.14X0 Preterm labor third trimester with preterm delivery third trimester, not applicable or unspecified; Z3A.36 36 weeks gestation of pregnancy; Z37.0 Single live birth; O24.420 Gestational diabetes mellitus in childbirth, diet controlled; O34.211 Maternal care for low transverse scar from previous cesarean delivery; O32.1XX0 Maternal care for breech presentation, not applicable or unspecified; O34.13 Maternal care for benign tumor of corpus uteri, third trimester; Z82.49 Family history of ischemic heart disease and other diseases of the circulatory system; Z91.048 Other nonmedicinal substance allergy status
CPT/HCPCS: 36415; 80053; 82570; 83615; 84156; 84550; 85025; 94664; 99212

== ENCOUNTER → 2020-06-26 | Outpatient (CLI) | payer BC ==
[~2020-06-26] MED LIST changes: +DOCU-143 PO; +OXYC1TAB12 PO
== END ==
LOC: LABNPT 11:55
PROVIDERS: ATTEND Obstetrics & Gynecology
DX: Z39.2 Encounter for routine postpartum follow-up (principal); O14.93 Unspecified pre-eclampsia, third trimester; Z3A.00 Weeks of gestation of pregnancy not specified
CPT/HCPCS: 82570; 84156

== ENCOUNTER 2021-02-05 05:40 | Outpatient (CLI) | payer BC ==
[~2021-02-05] VITALS: Ht 172.7 cm; Wt 108.6 kg
[2021-02-05] MEDS ORDERED: LABE300T2 PO (16:39)
== END 2021-02-06 09:55 | disposition home or self-care (01) ==
LOC: PREOP 05:40
PROVIDERS: ATTEND Obstetrics & Gynecology
DX: Z01.818 Encounter for other preprocedural examination (principal)

== ENCOUNTER → 2021-02-06 | Outpatient (CLI) | payer BC ==
[~2021-02-06] MED LIST changes: +HYDR-34 PO; +IBUP-844 PO; +LABE300T2 PO
--- NOTE | 2021-02-06 14:00 | Diagnostic Imaging Report ---
PROCEDURE: Pelvic complete, transabdominal and transvaginal sonogram. Limited pelvic doppler. TECHNIQUE: Multiple real-time grayscale images were obtained of the pelvis in various projections transabdominally and transvaginally. Limited pelvic duplex images were obtained. HISTORY: UTERINE LEIOMYOMA COMPARISON: None available. FINDINGS: Uterus: The uterus is anteverted and measures 13.0 x 7.9 x 5.8 cm. There are multiple intramural and subserosal uterine fibroids present measuring up to 3.1 cm. Endometrium: The endometrium is upper limits of normal and measures 1.5 cm. There is no fluid within the endometrial cavity. Adnexa: There is a 4.3 cm unilocular anechoic right ovarian cyst. The left ovary with normal appearance. The right ovary measures 4.6 x 3.6 x 3.9 cm and the left ovary measures 2.7 x 2.9 x 2.4 cm. Duplex images reveal normal vascular flow to both ovaries. Other: There is no free fluid within the pelvis. IMPRESSION: 1. Multiple intramural and subserosal uterine fibroids measuring up to 3.1 cm. 2. Endometrial thickness at the upper limits of normal measuring up to 1.5 cm. 3. A simple 4.3 cm right ovarian cyst does not require any follow-up. Dictated by: Dictated on workstation # [id number]
== END ==
LOC: RAD 12:59
PROVIDERS: ATTEND Obstetrics & Gynecology
DX: D25.9 Leiomyoma of uterus, unspecified (principal); N83.201 Unspecified ovarian cyst, right side
CPT/HCPCS: 76830; 76856

== ENCOUNTER 2021-02-10 09:30 | Day surgery (SDC) | payer BC ==
[~2021-02-10] VITALS: Ht 172 cm; Wt 108.6 kg
[2021-02-10] VITALS (10 sets, daily range): BP systolic 97–214; BP diastolic 91–129
[~2021-02-10 09:30] MED LIST changes: -HYDR-34 PO; -IBUP-844 PO
[2021-02-10] MEDS ORDERED: metroNIDAZOLE 500MG/100ML IVPB 100 ML IV ONE (09:45)
[2021-02-10] MEDS ORDERED: ceFAZolin 2 GM IV Premixed 50 ML IV ONE (09:45)
[2021-02-10] MEDS: LACTATED RINGERS 1,000 ML IV PRN ×2 (10:20→12:58)
[2021-02-10 10:24] LABS: BASOPHILS % (AUTO) 0 % (0-10); EOSINOPHILS # (AUTO) 0.3 10^3/uL (0.0-0.3); EOSINOPHILS % (AUTO) 4 % (0-10); HEMATOCRIT 43 % (35-52); HEMOGLOBIN 14.5 g/dL (11.5-16.0); LYMPHOCYTES # (AUTO) 1.5 10^3/uL (1.0-4.0); LYMPHOCYTES % (AUTO) 22 % (12-44); MEAN CORPUSCULAR HEMOGLOBIN 30 pg (25-34); MEAN CORPUSCULAR HGB CONC 34 g/dL (32-36); MEAN CORPUSCULAR VOLUME 90 fL (80-99); MEAN PLATELET VOLUME 8.9 fL (9.0-12.2); MONOCYTES # (AUTO) 0.4 10^3/uL (0.0-1.0); MONOCYTES % (AUTO) 6 % (0-12); NEUTROPHILS # (AUTO) 4.5 10^3/uL (1.8-7.8); NEUTROPHILS % (AUTO) 66 % (42-75); PLATELET COUNT 279 10^3/uL (130-400); WHITE BLOOD COUNT 6.8 10^3/uL (4.3-11.0)
[2021-02-10] MEDS ORDERED: BUPIVACAINE 0.25% 30 ML (SENSORCAINE) VIAL ONE (11:05)
[2021-02-10] MEDS ORDERED: SEVOFLURANE (ULTANE) 15 ML INHAL SOLN ONE ×2 (11:42→12:38)
[2021-02-10] MEDS ORDERED: fentaNYL INJ 100 MCG/2 ML AMP ONE (11:42)
[2021-02-10] MEDS ORDERED: MIDAZOLAM 2 MG/2 ML (VERSED) VIAL ONE (11:42)
[2021-02-10] MEDS ORDERED: LIDOCAINE PF 2% 5 ML (XYLOCAINE) VIAL ONE (11:42)
[2021-02-10] MEDS ORDERED: ONDANSETRON 4 MG/2 ML (SDV) Z0FRAN ONE (11:42)
[2021-02-10] MEDS ORDERED: proPOfol 200 MG/20 ML (DIPRIVAN) VIAL IV ONE (11:42)
--- NOTE | 2021-02-10 11:48 | Progress Note-Pre Operative ---
Pre-Operative Progress Note H&P Reviewed The H&P was reviewed, patient examined and no changes noted. Date Seen by Provider: Feb 10, 2021 Time Seen by Provider: 11:30 Date H&P Reviewed: Feb 10, 2021 Time H&P Reviewed: 11:30 Pre-Operative Diagnosis: Fibroid uterus, CPP, Endometriosis, AUB LASHONDA RODRÍGUEZ DO Feb 10, 2021 11:48
--- NOTE | 2021-02-10 11:52 | Discharge Inst-Women's Service ---
Discharge Inst-Women's Serv Depart Medication/Instructions New, Converted or Re-Newed RX: Transmitted to Pharmacy Problems Reviewed?: Yes Consults/Follow Up Additional Follow Up: Yes Orders/Referrals Dr. Paredes in 7-10 days and in 8 weeks Activity Activity: Activity as Tolerated Driving Instructions: No Driving for 1 Week NO SMOKING: NO SMOKING Nothing Inside Vagina: No Douching, No [place], No Tampons Diet Discharge Diet: No Restrictions Symptoms to Report to : Bleeding Excessive, Pain Increased, Fever Over 101 Degrees F, Vaginal Bleeding Increase, Questions/Concerns For Any Problems or Questions: Contact Your Physician Skin/Wound Care Infection Signs and Symptoms: Increased Redness, Foul Odor of Wound, Increased Drainage, Skin Itchy or Has a Rash, Increased Swelling, Temperature Above 101 F Operative Area Clean and Dry: Keep Incision Clean/Dry Stitches/[place]/Dermabond: Dermabond, Care of Stitches Bathing Instructions: LASHONDA Barker DO Feb 10, 2021 11:52
[2021-02-10] MEDS ORDERED: DOCU100C37 PO (11:54)
[2021-02-10] MEDS ORDERED: HYDR-34 PO (11:54)
[2021-02-10] MEDS ORDERED: IBUP-844 PO (11:54)
[2021-02-10] MEDS ORDERED: DOCUSATE SODIUM 100 MG (COLACE) CAP PO PRN (12:00)
[2021-02-10] MEDS ORDERED: KETOROLAC 30 MG/ML VIAL IVP PRN (12:00)
[2021-02-10] MEDS ORDERED: SIMETHICONE 80 MG (MYLICON) CHEW PO PRN (12:00)
[2021-02-10] MEDS ORDERED: NALOXONE 0.4 MG/ML 1 ML (NARCAN) VIAL IV PRN (12:00)
[2021-02-10] MEDS ORDERED: LACTATED RINGERS 1,000 ML IV SCH (12:00)
[2021-02-10] MEDS ORDERED: ONDANSETRON 4 MG/2 ML (SDV) Z0FRAN IV PRN (12:00)
[2021-02-10] MEDS ORDERED: ZOLPIDEM 5 MG (AMBIEN) TAB PO PRN (12:00)
[2021-02-10] MEDS ORDERED: HYDROcodone/APAP 7.5 MG/325 MG (LORTAB, LORCET PLUS) TABLET PO PRN (12:00)
[2021-02-10] MEDS ORDERED: CHLORASEPTIC LOZENGE MM PRN (12:00)
[2021-02-10] MEDS ORDERED: ANTACID SUSP 30 ML UDC (MYLANTA) PO PRN (12:00)
[2021-02-10] MEDS ORDERED: ROCURONIUM 50 MG/5 ML (ZEMURON) VIAL IV ONE (12:38)
[2021-02-10] MEDS ORDERED: INDIGO CARMINE 8 MG/ML 5 ML AMP ONE (13:15)
[2021-02-10] MEDS ORDERED: morphine INJ 10 MG/ML 1ML (SYR OR VIAL) IVP ONE (14:00)
[2021-02-10] MEDS ORDERED: fentaNYL INJ 100 MCG/2 ML AMP IVP ONE (14:00)
[2021-02-10] MEDS ORDERED: MEPERIDINE (DEMEROL) INJ 50 MG/ML IVP ONE (14:00)
[2021-02-10] MEDS ORDERED: ONDANSETRON 4 MG/2 ML (SDV) Z0FRAN IVP PRN (14:00)
[2021-02-10] MEDS ORDERED: morphine INJ 10 MG/ML 1ML (SYR OR VIAL) ONE (14:15)
[2021-02-10] MEDS ORDERED: LABETALOL 200 MG (NORMODYNE) TAB PO NR (15:45)
[2021-02-10] MEDS ORDERED: LABETALOL HCL 20 MG/4 ML VIAL IV NR (15:45)
--- NOTE | 2021-02-11 00:35 | OPERATIVE REPORT ---
DATE OF SERVICE: PREOPERATIVE DIAGNOSES: 1. A 45-year-old female with abnormal uterine bleeding. 2. Chronic pelvic pain. 3. Fibroid uterus. POSTOPERATIVE DIAGNOSES: 1. A 45-year-old female with abnormal uterine bleeding. 2. Chronic pelvic pain. 3. Fibroid uterus. PROCEDURE: Robotic-assisted total laparoscopic hysterectomy with bilateral salpingectomy, 358 grams. SURGEON: Santos Paredes DO INTERNATIONAL MARKETING MANAGER: Carmella Llaa DNP, who was necessary for manipulation and retraction throughout the procedure. ANESTHESIA: General endotracheal. ESTIMATED BLOOD LOSS: Minimal. URINE OUTPUT: 350 mL, indigo carmine stained at the end of the procedure. FLUIDS: 1750 mL lactated Ringer's solution. FINDINGS: A bulky uterus with grossly normal appearing bilateral fallopian tubes with suspicion of endometriosis implants on the fallopian tubes, grossly normal appearing bilateral ovaries. SPECIMEN SENT: Uterus, bilateral fallopian tubes. 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 The patient was evaluated, and her history was reviewed. Dr. Evans records were complete and thorough however, insurance did require an ultrasound for prior authorization ultrasound confirmed by Dr. Evans's notes from her earlier this year had stated. I discussed with the patient more conservative measures; however, she had already planned on doing this with Dr. Evans. Therefore, I was okay with proceeding. Again risks of the procedure were reviewed with the patient and her present including the risk of bleeding, infection, damage to surrounding structures including, but not limited to bowel, bladder, ureter, kidneys, possible need for reoperation, postoperative complications that may occur, risk from anesthesia, recovery timeframe and even . After everything was discussed with the patient in detail, consent was obtained throughout. The patient was taken to the operating room. OPERATIVE REPORT IN DETAIL: Once in the operating room, anesthesia was found to be adequate, placed in dorsal lithotomy position, prepped and draped in normal sterile fashion. Timeout was performed. Frye catheter was placed using sterile technique. A weighted speculum inserted to the patient's vagina. Right angle retractor was used to visualize the cervix and 0 Vicryl sutures placed in the anterior lip of the cervix and the suture was used as my retraction point. I then gently sound the uterine cavity, depth was found to be 8 cm. I selected an 8 cm Lisa uterine manipulator tip and a 3.5 cm colpotomy ring advancing uterine manipulator tip into the uterus deploying the balloon and advanced colpotomy around the vaginal fornix, which offers good manipulation on bimanual evaluation. I then removed all the instruments from the patient's vagina, performed change of gloves, turned my attention to the abdomen where subcostally at the midclavicular line, I inserted a Veress needle through the skin until intraperitoneal placement was confirmed using saline drop test. An opening pressure of 6 mmHg was noted, I proceeded to maximum pressure of 15 mmHg using CO2 gas, at which point, I made an infraumbilical trocar incision with a knife after infiltrating the skin using 0.25% Marcaine. I then introduced an 8 mm blunt laparoscopic da Aditi camera trocar through the incision until intraperitoneal placement was confirmed using the da Aditi laparoscope. Her brief scan in the upper abdominal anatomy appears to be grossly normal. The Veress needle was removed and there is no evidence of damage upon the Veress site. Scan in the lower abdomen reveals all my findings as defined in my findings above. I then had the patient placed in steep Trendelenburg and placed two lateral trocars approximately 10 cm lateral to my infraumbilical trocar. They are both 8 mm incisions. Once both these trocars were placed under direct visualization of laparoscope, I bring in the da Aditi robot and docked in appropriate fashion placing the SynchroSeal device in the left hand and monopolar lila in the right hand. I performed the following dissection bilaterally at the uteroovarian ligament. I sealed and transected using vessel sealer. I then created a window in the mesosalpinx and dissected laterally using the SynchroSeal device. I then grasped the round ligament, which I sealed and transected using SynchroSeal device. I then able to grasp the entire broad ligament, which I sealed and transected using the SynchroSeal device down to the level of the lower uterine segment, at which point I the anterior and posterior leaflets of the broad ligament. The anterior leaflet was taken around to the anterior vaginal fornix and posterior leaflets was taken around the posterior vaginal fornix. This allows me to skeletonize the uterine vessels laterally, which I sealed and transected using vessel sealer. During the entire time of this dissection, I am able to visualize the ureters and stay clear of them during my dissection. I then created a colpotomy at 12 o'clock position, took this circumferentially around the vaginal fornix, amputating the cervix away from the vagina using monopolar cautery. I then removed the entire specimen through the vagina. The lateral vaginal apices of the vaginal cuff were reapproximated using 2-0 Vicryl suture in a [id number] fashion colposuspending into the uterosacral ligaments. I then closed the remainder of the vaginal cuff using 2-0 V-Loc in a running fashion, after which there was no active bleeding noted from any of my dissection planes. I then undocked the da Aditi robot and proceeded with remainder of the case laparoscopically. I copiously irrigated the pelvis using normal saline. Once again, there was no active bleeding noted from any of my dissection planes. I placed Surgiflo hemostatic agent over all my planes of dissection. I then had the patient taken out of steep Trendelenburg and removed the lateral trocars under direct visualization of the laparoscope and infraumbilical trocars left in place to release insufflation and to introduce 10 mL of 0.25% Marcaine into peritoneal cavity for postoperative pain management. I then removed this trocar as well. The skin reapproximated using 4-0 Monocryl in interrupted subcuticular stitches. Dermabond was applied to the incisions and Band-Aids were placed in the incisions as well. Frye catheter was left in place. The patient tolerated the procedure well and sent to recovery area in stable condition. Lap and sponge counts were correct at the end of procedure. Instrument counts correct as well. Two grams of Ancef, 500 mg of Flagyl were given preoperatively for infection prophylaxis. Job ID: [id number] DocumentID: [id number] Dictated Date: 02/10/2021 13:51:11 [employer] Roller Covers Supervisor Date: 02/11/2021 00:11:31 Dictated By: DO CINTHYA BROWN
--- NOTE | 2021-02-11 09:46 | Anesthesia-General Post-Op ---
General Patient Condition Mental Status/LOC: Same as Preop Cardiovascular: Satisfactory Nausea/Vomiting: Absent Respiratory: Satisfactory Pain: Controlled Complications: Absent Post Op Complications Complications None Follow Up Care/Instructions Patient Instructions None needed. Anesthesia/Patient Condition Patient Condition Patient is already discharged to home but she was doing well, no complaints, stable vital signs, no apparent adverse anesthesia problems prior to her discharge per nursing staff. CORDELIA COLBY DO Feb 11, 2021 09:45
[2021-02-15] MEDS ORDERED: IBUPROFEN 600 MG (MOTRIN) TAB PO SCH (12:00)
== END 2021-02-10 18:20 | disposition home or self-care (01) ==
LOC: SDC 09:30 → WS 13:12 → SDC 18:20
PROVIDERS: ATTEND Obstetrics & Gynecology
DX: D25.9 Leiomyoma of uterus, unspecified (principal); I10 Essential (primary) hypertension; E66.9 Obesity, unspecified; D25.0 Submucous leiomyoma of uterus; N80.3 Endometriosis of pelvic peritoneum; Z79.899 Other long term (current) drug therapy; Z68.36 Body mass index [BMI] 36.0-36.9, adult
CPT/HCPCS: 36415; 84703; 85025; 86850; 86900; 86901; 87081; 94664